=== PATIENT | female | born 1960 | race Caucasian/White ===

== ENCOUNTER 2024-07-14 10:12 | Emergency (ER) | payer OTHER ==
[2024-07-14 10:26] VITALS: BP 133/65; PULSE 93; RESP 18; TEMP 98.6; BMI 26.6
[2024-07-14] MEDS ORDERED: ACETAMINOPHEN INJECTION 100 ML ONE (11:20)
[2024-07-14] MEDS: ACETAMINOPHEN 1000 MG/100 ML BAG IVPB ONE (11:41)
[2024-07-14 11:45] LABS: ABSOLUTE IMMATURE GRANULOCYTES 0.02 x10^3/uL (0.0-0.031); BASOPHILS # 0.03 x10^3/uL (0.01-0.08); EOSINOPHIL % 1.1 % (0.7-5.8); EOSINOPHILS # 0.09 x10^3/uL (0.04-0.36); HEMATOCRIT 40.4 % (34.1-44.9); HEMOGLOBIN 12.8 g/dL (11.2-15.7); MCHC 31.7 g/dl (32.2-35.5); MEAN CELL VOLUME 87.3 fl (79.4-94.8); MEAN PLT VOLUME 11.3 fl (9.4-12.3); MONOCYTE # 0.68 x10^3/uL (0.24-0.86); MONOCYTE % 7.9 % (4.7-12.5); PLATELET COUNT 224 x10^3/uL (182-369); RDW 14.5 % (12.4-16.4)
[2024-07-14 11:49] LABS: EPI CELLS 17 /uL (0-25.1); HYALINE CASTS 2 /uL (0-3.1); PH,URINE 5.5 (5.0-8.0); URINE APPEARANCE CLEAR; URINE BACTERIA 27 /uL (0-1359); URINE BILIRUBIN NEGATIVE (NEGATIVE); URINE COLOR DK YELLOW; URINE GLUCOSE (UA) NEGATIVE (NEGATIVE); URINE KETONE TRACE (NEGATIVE); URINE LEUK ESTERASE NEGATIVE (NEGATIVE); URINE NITRITE NEGATIVE (NEGATIVE); URINE PROTEIN TRACE (NEGATIVE); URINE RBC 106 /uL (0-23.9); URINE UROBILINOGEN 0.2 mg/dL (0.2-1.0); URINE WBC 14 /uL (0-25.8)
[2024-07-14 11:58] LABS: INR 1.15 (0.83-1.09); PROTHROMBIN TIME (PATIENT) 12.6 SEC (9.7-13.0)
[2024-07-14 12:01] LABS: ACTIVATED PTT 28.3 SECONDS (25.2-36.5)
[2024-07-14 12:06] LABS: CALCIUM 9.9 mg/dL (8.5-10.1); POTASSIUM 3.7 mmol/L (3.5-5.1)
[2024-07-14 12:07] LABS: ALBUMIN 3.9 g/dl (3.4-5.0); BLOOD UREA NITROGEN 19.5 mg/dL (7-18); MAGNESIUM 2.4 mg/dL (1.8-2.4)
[2024-07-14 12:10] LABS: CREATININE 0.6 mg/dL (0.55-1.3)
[2024-07-14 12:11] LABS: BILIRUBIN,TOTAL 0.4 mg/dL (0.2-1)
[2024-07-14 12:15] LABS: TOT PROT 7.4 g/dl (6.4-8.2)
== END 2024-07-14 15:00 | disposition home or self-care (01) ==
LOC: JER 10:12
PROC: 3E033NZ Introduction of Analgesics, Hypnotics, Sedatives into Peripheral Vein, Percutaneous Approach (ICD-10-PCS; principal; 2024-07-14)
DX: R10.31 Right lower quadrant pain (principal); R11.0 Nausea; R50.9 Fever, unspecified; R19.7 Diarrhea, unspecified
CPT/HCPCS: 0241U-QW; 36415; 74177-TC; 80053; 81003; 83605; 83690; 83735; 85025; 85610; 85730; 86850; 86900; 86901; 87086; 99285-25; J0131; Q9967